=== PATIENT | male | born 1960 | race Caucasian/White ===

== ENCOUNTER → 2025-03-18 | Day surgery (SDC) | payer MEDICARE ==
[2025-03-15 08:46] LABS: BASOPHILS % 0.6 % (0.0-1.0); EOSINOPHILS % 1.9 % (0.0-6.0); LYMPHOCYTES % 28.1 % (18.0-39.1); MONOCYTES % 10.1 % (4.4-11.3); NEUTROPHILS % 59.0 % (38.7-80.0); RED CELL DISTRIBUTION WIDTH 13.1 % (11.7-14.4)
[2025-03-15 09:08] LABS: EST GLOMERULAR FILTRATION RATE 92.0 ML/MIN (>=60)
[~2025-03-18] MED LIST: ASPIRIN81 MG PO; ATORVASTATIN CA10 MG PO; DEXAMETHASONE SOD PHOS INJ 4 MG/ML SDV ONE; GLYCOPYRROLATE INJ 0.2 MG/ML VIAL ONE; JARDIANCE25 MG PO; LIDOCAINE HCL 2% LOCAL INJ 5 ML SDV VIAL INJ ONE; LISINOPRIL5 MG PO; METFORMIN HCL500 M2 PO; ONDANSETRON HCL INJ 2MG/ML 2ML 2 MG/ML VIAL ONE; PROPOFOL IV EMULSION 10 MG/ML 20 ML VIAL ONE
[2025-03-18] MEDS: GATIFLOXACIN(OPTH) 5 ML LIQD ONE (09:49)
[2025-03-18] MEDS: PHENYLEPHRINE HCL 2 ML DROPS ONE (09:49)
[2025-03-18] MEDS: CYCLOPENTOLATE HCL 2% OPTH SOLN 2 ML BTL OP ONE (09:49)
[2025-03-18] MEDS: TETRACAINE HCL 0.5% OPTH SOLN 4 ML BTL ONE (09:49)
[2025-03-18] MEDS: LACTATED RINGER'S 1,000 ML ONE (09:49)
[2025-03-18 12:32] VITALS: TEMP 98
[2025-03-18 12:50] VITALS: BP 130/71; PULSE 70; RESP 16; O2SAT 97
== END | disposition home or self-care (01) ==
LOC: OR 08:45
PROVIDERS: ATTEND Ophthalmology
DX: H25.11 Age-related nuclear cataract, right eye (principal); E11.9 Type 2 diabetes mellitus without complications; I25.10 Atherosclerotic heart disease of native coronary artery without angina pectoris; I10 Essential (primary) hypertension; I25.2 Old myocardial infarction; N20.0 Calculus of kidney; Z01.810 Encounter for preprocedural cardiovascular examination; Z01.812 Encounter for preprocedural laboratory examination; Z79.82 Long term (current) use of aspirin; Z79.84 Long term (current) use of oral hypoglycemic drugs; Z79.899 Other long term (current) drug therapy; Z98.61 Coronary angioplasty status
CPT/HCPCS: 36415; 80048; 82948; 85025; 93005; J1100; J2003; J2405; V2632

== ENCOUNTER → 2025-05-13 | Day surgery (SDC) | payer MEDICARE ==
[2025-05-05 10:40] LABS: BASOPHILS % 0.6 % (0.0-1.0); EOSINOPHILS % 0.8 % (0.0-6.0); LYMPHOCYTES % 27.0 % (18.0-39.1); MONOCYTES % 8.7 % (4.4-11.3); NEUTROPHILS % 62.5 % (38.7-80.0); RED CELL DISTRIBUTION WIDTH 13.3 % (11.7-14.4)
[2025-05-05 10:47] LABS: EST GLOMERULAR FILTRATION RATE 96.0 ML/MIN (>=60)
[~2025-05-13] MED LIST changes: -DEXAMETHASONE SOD PHOS INJ 4 MG/ML SDV ONE; +FENTANYL CITRATE/PF 100MCG/2 ML INJ ONE; -GLYCOPYRROLATE INJ 0.2 MG/ML VIAL ONE; -ONDANSETRON HCL INJ 2MG/ML 2ML 2 MG/ML VIAL ONE
[2025-05-13] MEDS: LACTATED RINGER'S 1,000 ML ONE (05:56)
[2025-05-13] MEDS: PHENYLEPHRINE HCL 2 ML DROPS ONE (05:56)
[2025-05-13] MEDS: CYCLOPENTOLATE HCL 2% OPTH SOLN 2 ML BTL OP ONE (05:56)
[2025-05-13] MEDS: TETRACAINE HCL 0.5% OPTH SOLN 4 ML BTL ONE (05:56)
[2025-05-13] MEDS: GATIFLOXACIN(OPTH) 5 ML LIQD ONE (05:56)
[2025-05-13 08:16] VITALS: TEMP 97.9
[2025-05-13 08:30] VITALS: BP 144/89; PULSE 67; RESP 15; O2SAT 98
== END | disposition home or self-care (01) ==
LOC: OR 05:20
PROVIDERS: ATTEND Ophthalmology
DX: H25.12 Age-related nuclear cataract, left eye (principal); I10 Essential (primary) hypertension; E78.5 Hyperlipidemia, unspecified; E11.9 Type 2 diabetes mellitus without complications; Z79.84 Long term (current) use of oral hypoglycemic drugs; Z01.810 Encounter for preprocedural cardiovascular examination; Z01.812 Encounter for preprocedural laboratory examination
CPT/HCPCS: 36415 ×2; 66984; 80048; 82948; 85025; J2003; J2704; J3010; J7121; V2632